=== PATIENT | female | born 1940 | race Caucasian/White ===

== ENCOUNTER → 2018-04-01 | Outpatient (CLI) | payer MEDICARE, OTHER ==
[~2018-04-01] MED LIST: ATOR20TA9 PO; CALC200T3 PO; DIAZ5TAB PO; ESOM40CA PO; HYDR-3240 PO; HYDR-3245 PO; HYOS0.1282 PO; IBUP200C8 PO; LISI-167 PO; TRAV5DRO EACHEYE; ZOLP12.52 PO
[2018-04-01 10:50] LABS: BASOPHILS # (AUTO) 0.04 x10^3/uL (0-0.1); BASOPHILS % (AUTO) 1 % (0-1); EOSINOPHILS # (AUTO) 0.19 x10^3/uL (0-0.4); EOSINOPHILS % (AUTO) 3 % (1-7); LYMPHOCYTES # (AUTO) 1.46 x10^3/uL (1-3.4); LYMPHOCYTES % (AUTO) 23 % (22-44); MD NO; MEAN CORPUSCULAR HEMOGLOBIN 28.8 pg (27.0-34.8); MEAN CORPUSCULAR HGB CONC 33.1 g/dL (32.4-35.8); MEAN PLATELET VOLUME 8.4 fL (7.4-10.4); MONOCYTES # (AUTO) 0.72 x10^3/uL (0.2-0.8); MONOCYTES % (AUTO) 11 % (2-9); NEUTROPHILS # (AUTO) 3.93 x10^3/uL (1.8-6.8); NEUTROPHILS % (AUTO) 62 % (42-75); PLATELET COUNT 268 x10^3/uL (130-400); RED BLOOD COUNT 4.37 x10^6/uL (3.82-5.3)
[2018-04-01 10:57] LABS: ALBUMIN 3.7 g/dL (3.4-5.0); ANION GAP 6 mmol/L (5-15); CALCIUM 8.6 mg/dL (8.5-10.1); CHLORIDE 104 mmol/L (98-107); CREATININE 0.91 mg/dL (0.55-1.02); INTERNATIONAL NORMALIZED RATIO 0.94 (0.93-1.1); PROTHROMBIN TIME 9.8 Seconds (9.6-11.5)
[2018-04-01 11:00] LABS: ALANINE AMINOTRANSFERASE 21 U/L (12-78); ALKALINE PHOSPHATASE 69 U/L (45-117); BILIRUBIN,TOTAL 0.4 mg/dL (0.2-1.0); TOTAL PROTEIN 7.3 g/dL (6.4-8.2)
[2018-04-01 11:06] LABS: MICROSCOPIC AUTO
[2018-04-01 11:07] LABS: CULTURE INDICATED? NO
== END | disposition home or self-care (01) ==
LOC: STAR 09:44
PROVIDERS: ATTEND Neurological Surgery
DX: Z01.818 Encounter for other preprocedural examination (principal); M51.36 Other intervertebral disc degeneration, lumbar region
CPT/HCPCS: 36415; 71046; 80053; 81001; 85025; 85610; 85730; 93005

== ENCOUNTER 2018-04-15 09:48 | Inpatient (IN) | payer MEDICARE, OTHER ==
[~2018-04-15] VITALS: Ht 157.5 cm; Wt 52.3 kg
[2018-04-15] MEDS ORDERED: LACTATED RINGERS 1,000 ML IV SCH (10:48)
[2018-04-15 11:00] VITALS: BP 135/85
[2018-04-15] MEDS ORDERED: ONDANSETRON 2MG/ML, 2ML ONE (13:42)
[2018-04-15] MEDS ORDERED: SUCCINYLCHOLINE 20 MG/ML, 10ML ONE (13:42)
[2018-04-15] MEDS ORDERED: PROPOFOL 10 MG/ML, 20ML ONE (13:42)
[2018-04-15] MEDS ORDERED: CEFAZOLIN 1,000 MG ONE (13:42)
[2018-04-15] MEDS ORDERED: ROCURONIUM 10 MG/ML,10ML ONE (13:42)
[2018-04-15] MEDS ORDERED: DEXAMETHASONE 4 MG/ML, 1ML ONE (13:42)
[2018-04-15] MEDS ORDERED: PROPOFOL 10 MG/ML, 50ML ONE (13:42)
[2018-04-15] MEDS ORDERED: SUGAMMADEX 200 MG/2 ML IVPush ONE (14:12)
[2018-04-15] MEDS ORDERED: HALOPERIDOL 5 MG/ML IV PRN (14:30)
[2018-04-15] MEDS ORDERED: ONDANSETRON 2MG/ML, 2ML IV PRN (14:30)
[2018-04-15] MEDS ORDERED: ALBUTEROL SULFATE 2.5 MG/3 ML NPPB PRN (14:30)
[2018-04-15] MEDS ORDERED: hydrALAzine 20 MG/ML, 1ML IV PRN (14:30)
[2018-04-15] MEDS ORDERED: KETOROLAC 30 MG/1 ML IV PRN (14:30)
[2018-04-15] MEDS ORDERED: HYDROcodone/APAP 7.5-325MG/15ML UDC PO PRN (14:30)
[2018-04-15] MEDS ORDERED: LABETALOL 5MG/ML, 20ML IV PRN (14:30)
[2018-04-15] MEDS ORDERED: BACITRACIN 50,000 UNIT IRRIG ONE (14:50)
[2018-04-15] MEDS ORDERED: BUPIVACAINE/PF-EPI 0.25% 1:200K INFIL ONE ×2 (14:51)
[2018-04-15] MEDS ORDERED: THROMBIN 5,000 UNIT VIAL TP ONE (14:52)
[2018-04-15] MEDS ORDERED: PROMETHAZINE 25 MG/ML, 1ML IM PRN (17:00)
[2018-04-15] MEDS ORDERED: MAGNESIUM HYDROXIDE 8%, 30ML UDC PO PRN (17:00)
[2018-04-15] MEDS ORDERED: CALCIUM CARBONATE 500 MG TAB.CHEW PO PRN (17:00)
[2018-04-15] MEDS ORDERED: METOCLOPRAMIDE 5 MG/ML, 2ML IVPush PRN (17:00)
[2018-04-15] MEDS ORDERED: BISACODYL 10 MG SUPP PR PRN (17:00)
[2018-04-15] MEDS ORDERED: TIZANIDINE 4MG TABLET PO PRN (17:00)
[2018-04-15] MEDS ORDERED: HYDROmorphone PCA 30 MG/30 ML IV PRN (17:00)
[2018-04-15] MEDS ORDERED: PHARMACY MAY ADJ FOR RENAL FX MC PRN (17:00)
[2018-04-15] MEDS ORDERED: MEPERIDINE/PF 100 MG/ML IM PRN (17:00)
[2018-04-15] MEDS ORDERED: DIPHENHYDRAMINE 50 MG/ML, 1ML IVPush PRN (17:00)
[2018-04-15] MEDS ORDERED: HYDROmorphone 2 MG/ML, 1ML ONE (17:01)
[2018-04-15] MEDS ORDERED: FENTANYL PF 100 MCG/2ML ONE ×2 (17:01→17:30)
[2018-04-15] MEDS: HYDROmorphone 1 MG/ML, 1ML IV PRN ×3 (17:03→17:35)
[2018-04-15] MEDS: FENTANYL PF 100 MCG/2ML IV PRN ×3 (17:05→17:32)
[2018-04-15] MEDS: ZOLPIDEM 5MG TABLET PO SCH (21:00)
[2018-04-15] MEDS: SODIUM CHLORIDE FLUSH 10ML SYR IVF SCH (21:00)
[2018-04-15] MEDS: NS + 20MEQ KCL 1,000 ML IV SCH (22:44)
[2018-04-15] MEDS: OMEPRAZOLE 20 MG CAPSULE.DR PO SCH (22:54)
[2018-04-15] MEDS: ATORVASTATIN 20 MG TABLET PO SCH (22:54)
[2018-04-15] MEDS: LISINOPRIL 10 MG TABLET PO SCH (22:55)
[2018-04-16 00:31] VITALS: BP 106/60
[2018-04-16 00:44] VITALS: BP 96/52
[2018-04-16] MEDS: CEFAZOLIN PMX 1GM/50ML 50 ML IVPB SCH ×2 (01:15→10:40)
[2018-04-16] MEDS: HYDROmorphone 2MG TABLET PO PRN ×4 (01:32→21:58)
[2018-04-16 04:16] VITALS: BP 99/60
[2018-04-16 05:55] LABS: BASOPHILS % (AUTO) 0 % (0-1); EOSINOPHILS % (AUTO) 0 % (1-7); LYMPHOCYTES # (AUTO) 0.68 x10^3/uL (1-3.4); LYMPHOCYTES % (AUTO) 6 % (22-44); MD NO; MEAN CORPUSCULAR HGB CONC 33.6 g/dL (32.4-35.8); MEAN CORPUSCULAR VOLUME 86.2 fL (80-100); MEAN PLATELET VOLUME 8.8 fL (7.4-10.4); MONOCYTES # (AUTO) 0.74 x10^3/uL (0.2-0.8); MONOCYTES % (AUTO) 7 % (2-9); NEUTROPHILS % (AUTO) 87 % (42-75); PLATELET COUNT 203 x10^3/uL (130-400); RED BLOOD COUNT 3.44 x10^6/uL (3.82-5.3); RED CELL DISTRIBUTION WIDTH 13.8 % (9.6-15.2)
[2018-04-16 05:59] LABS: ANION GAP 7 mmol/L (5-15); CALCIUM 8.3 mg/dL (8.5-10.1); CHLORIDE 109 mmol/L (98-107)
[2018-04-16 06:00] LABS: CREATININE 0.56 mg/dL (0.55-1.02)
[2018-04-16] MEDS: ONDANSETRON 2MG/ML, 2ML IVPush PRN ×2 (06:27→21:57)
[2018-04-16 07:20] VITALS: BP 105/59
[2018-04-16] MEDS: SODIUM CHLORIDE FLUSH 10ML SYR IVF SCH ×2 (09:42→22:00)
[2018-04-16] MEDS: SENNA/DOCUSATE TABLET PO SCH (09:42)
[2018-04-16] MEDS: NS + 20MEQ KCL 1,000 ML IV SCH (13:59)
[2018-04-16 18:37] VITALS: BP 119/72
[2018-04-16] MEDS: OMEPRAZOLE 20 MG CAPSULE.DR PO SCH (21:57)
[2018-04-16] MEDS: LISINOPRIL 10 MG TABLET PO SCH (21:58)
[2018-04-16] MEDS: ATORVASTATIN 20 MG TABLET PO SCH (21:58)
[2018-04-16] MEDS: ZOLPIDEM 5MG TABLET PO SCH (21:59)
[2018-04-17] MEDS: NS + 20MEQ KCL 1,000 ML IV SCH ×3 (00:30→20:30)
[2018-04-17 04:58] LABS: BASOPHILS % (AUTO) 0 % (0-1); EOSINOPHILS # (AUTO) 0.01 x10^3/uL (0-0.4); EOSINOPHILS % (AUTO) 0 % (1-7); LYMPHOCYTES # (AUTO) 0.82 x10^3/uL (1-3.4); LYMPHOCYTES % (AUTO) 7 % (22-44); MD NO; MEAN CORPUSCULAR HEMOGLOBIN 29.8 pg (27.0-34.8); MEAN CORPUSCULAR HGB CONC 34.4 g/dL (32.4-35.8); MEAN CORPUSCULAR VOLUME 86.5 fL (80-100); MEAN PLATELET VOLUME 8.6 fL (7.4-10.4); MONOCYTES # (AUTO) 1.33 x10^3/uL (0.2-0.8); MONOCYTES % (AUTO) 11 % (2-9); NEUTROPHILS # (AUTO) 9.48 x10^3/uL (1.8-6.8); NEUTROPHILS % (AUTO) 81 % (42-75); PLATELET COUNT 201 x10^3/uL (130-400); RED BLOOD COUNT 3.46 x10^6/uL (3.82-5.3); RED CELL DISTRIBUTION WIDTH 13.8 % (9.6-15.2)
[2018-04-17 05:08] LABS: ANION GAP 7 mmol/L (5-15); CALCIUM 8.1 mg/dL (8.5-10.1); CHLORIDE 106 mmol/L (98-107); CREATININE 0.69 mg/dL (0.55-1.02)
[2018-04-17] MEDS: ONDANSETRON 2MG/ML, 2ML IVPush PRN (06:34)
[2018-04-17] MEDS: SODIUM CHLORIDE FLUSH 10ML SYR IVF SCH ×2 (08:16→22:23)
[2018-04-17] MEDS: SENNA/DOCUSATE TABLET PO SCH (08:16)
[2018-04-17] MEDS: HYDROmorphone 2MG TABLET PO PRN (17:44)
[2018-04-17 19:25] VITALS: BP 133/74
[2018-04-17] MEDS: ZOLPIDEM 5MG TABLET PO SCH (22:23)
[2018-04-17] MEDS: ATORVASTATIN 20 MG TABLET PO SCH (22:24)
[2018-04-17] MEDS: LISINOPRIL 10 MG TABLET PO SCH (22:24)
[2018-04-17] MEDS: OMEPRAZOLE 20 MG CAPSULE.DR PO SCH (22:24)
[2018-04-18 05:23] LABS: BASOPHILS # (AUTO) 0.08 x10^3/uL (0-0.1); BASOPHILS % (AUTO) 1 % (0-1); EOSINOPHILS # (AUTO) 0.04 x10^3/uL (0-0.4); EOSINOPHILS % (AUTO) 0 % (1-7); LYMPHOCYTES # (AUTO) 1.08 x10^3/uL (1-3.4); LYMPHOCYTES % (AUTO) 10 % (22-44); MD NO; MEAN CORPUSCULAR HEMOGLOBIN 28.9 pg (27.0-34.8); MEAN CORPUSCULAR HGB CONC 33.4 g/dL (32.4-35.8); MEAN CORPUSCULAR VOLUME 86.5 fL (80-100); MEAN PLATELET VOLUME 8.6 fL (7.4-10.4); MONOCYTES # (AUTO) 1.39 x10^3/uL (0.2-0.8); MONOCYTES % (AUTO) 13 % (2-9); NEUTROPHILS # (AUTO) 8.56 x10^3/uL (1.8-6.8); NEUTROPHILS % (AUTO) 77 % (42-75); PLATELET COUNT 201 x10^3/uL (130-400); RED BLOOD COUNT 3.47 x10^6/uL (3.82-5.3); RED CELL DISTRIBUTION WIDTH 13.8 % (9.6-15.2)
[2018-04-18 05:36] LABS: ANION GAP 7 mmol/L (5-15); CALCIUM 8.1 mg/dL (8.5-10.1); CHLORIDE 105 mmol/L (98-107)
[2018-04-18 05:37] LABS: CREATININE 0.59 mg/dL (0.55-1.02)
[2018-04-18] MEDS: NS + 20MEQ KCL 1,000 ML IV SCH (06:30)
[2018-04-18 07:45] VITALS: BP 138/80
[2018-04-18] MEDS: SENNA/DOCUSATE TABLET PO SCH (08:07)
[2018-04-18] MEDS: SODIUM CHLORIDE FLUSH 10ML SYR IVF SCH (08:08)
[2018-04-18] MEDS ORDERED: TIZA4TAB9 PO ×2 (08:13→08:58)
[2018-04-18] MEDS ORDERED: HYDR2TAB29 PO (08:56)
== END 2018-04-18 09:40 | disposition home or self-care (01) | DRG 454 ==
LOC: ORIP 10:23 → 4NOR 18:53
PROVIDERS: ADMIT Neurological Surgery; ATTEND Neurological Surgery
PROC: 4A11X4G Monitoring of Peripheral Nervous Electrical Activity, Intraoperative, External Approach (ICD-10-PCS; 2018-04-15)
PROC: 0SG3071 Fusion of Lumbosacral Joint with Autologous Tissue Substitute, Posterior Approach, Posterior Column, Open Approach (ICD-10-PCS; 2018-04-15)
PROC: 00U20KZ Supplement Dura Mater with Nonautologous Tissue Substitute, Open Approach (ICD-10-PCS; 2018-04-15)
PROC: 3E0U0GB Introduction of Recombinant Bone Morphogenetic Protein into Joints, Open Approach (ICD-10-PCS; 2018-04-15)
PROC: 0SG30AJ Fusion of Lumbosacral Joint with Interbody Fusion Device, Posterior Approach, Anterior Column, Open Approach (ICD-10-PCS; principal; 2018-04-15 13:00)
DX: M48.07 Spinal stenosis, lumbosacral region (principal); G97.41 Accidental puncture or laceration of dura during a procedure; M12.88 Other specific arthropathies, not elsewhere classified, other specified site; M54.17 Radiculopathy, lumbosacral region; G89.29 Other chronic pain; I10 Essential (primary) hypertension; E78.5 Hyperlipidemia, unspecified; Z88.2 Allergy status to sulfonamides; Z88.1 Allergy status to other antibiotic agents; Z88.8 Allergy status to other drugs, medicaments and biological substances; Z87.891 Personal history of nicotine dependence; Z79.899 Other long term (current) drug therapy
CPT/HCPCS: 36415; 72100; 80048; 85025; 95938; 95941; C1713; C1776; G0378; J0690; J1100; J1170; J2405; J2704; J3010; J3370; J3480; C1762; C1781; J0330; J2765; J7120

== ENCOUNTER → 2018-08-12 | Outpatient (CLI) | payer MEDICARE, OTHER ==
[~2018-08-12] MED LIST changes: +ATOR20TA37 PO; -ATOR20TA9 PO; +HYDR-3237 PO; +HYDR2TAB29 PO; +IBUP-1221 PO; +TIZA4TAB9 PO; +ZOLP5TAB6 PO
[2018-08-12 09:34] LABS: ALANINE AMINOTRANSFERASE 16 U/L (12-78); ALBUMIN 3.6 g/dL (3.4-5.0); ANION GAP 5 mmol/L (5-15); CALCIUM 9.1 mg/dL (8.5-10.1); CHLORIDE 108 mmol/L (98-107); CREATININE 0.81 mg/dL (0.55-1.02)
[2018-08-12 09:36] LABS: ALKALINE PHOSPHATASE 80 U/L (45-117); TOTAL PROTEIN 7.9 g/dL (6.4-8.2)
== END | disposition home or self-care (01) ==
LOC: STAR 08:47
PROVIDERS: ATTEND Internal Medicine
DX: Z01.818 Encounter for other preprocedural examination (principal); D49.7 Neoplasm of unspecified behavior of endocrine glands and other parts of nervous system
CPT/HCPCS: 36415; 80053; 93005

== ENCOUNTER 2018-08-24 05:20 | Day surgery (SDC) | payer MEDICARE, OTHER ==
[~2018-08-24] VITALS: Ht 157.5 cm; Wt 49.4 kg
[2018-08-24] MEDS ORDERED: LACTATED RINGERS 1,000 ML IV SCH (06:03)
[2018-08-24 06:09] VITALS: BP 151/91
[2018-08-24] MEDS ORDERED: PROPOFOL 10 MG/ML, 20ML ONE ×2 (08:09)
== END 2018-08-24 09:45 | disposition home or self-care (01) ==
LOC: OR 05:20 → OUT 09:45
PROVIDERS: ATTEND Internal Medicine
DX: K31.7 Polyp of stomach and duodenum (principal); K31.89 Other diseases of stomach and duodenum; E78.5 Hyperlipidemia, unspecified; K21.9 Gastro-esophageal reflux disease without esophagitis; I10 Essential (primary) hypertension; Z88.1 Allergy status to other antibiotic agents; Z88.8 Allergy status to other drugs, medicaments and biological substances
CPT/HCPCS: 43259; J2704; J7120

== ENCOUNTER → 2020-04-24 | Outpatient (CLI) | payer MEDICARE | END | disposition home or self-care (01) | LOC: CVU 07:11 | PROVIDERS: ATTEND Family Medicine | DX: I05.1 Rheumatic mitral insufficiency (principal); R55 Syncope and collapse | CPT/HCPCS: 93306; 93356 ==